=== PATIENT | female | born 2000 | race African-American/Black ===

== ENCOUNTER 2024-09-12 08:15 | Outpatient (RCR) | payer OTHER, SELFPAY ==
--- NOTE | 2024-06-23 17:09 | PT.OIE ---
Current Diagnoses Unspecified dyspareunia (06/23/24) Visit Care Team Role Provider Type LISA Torres-Kiara Family Provider Non-Staff Primary Care Provider Specialty: Nursing Address: [facility], [address] [place] [address], [id number] Email: Joanne Richard MD Attending Provider Non-Staff Referring Provider Specialty: Medical Address: [address] [place] [address], [id number] Email: Physical Therapy Initial Evaluation PT-OP-A Visit Information Start: 06/14/24 18:30 Freq: Status: Active Protocol: Document 06/23/24 07:34 LRN (Rec: 06/23/24 09:50 LRN [id number]) Out-Patient Physical Therapy Visit Information Visit Information Visit Type Initial Evaluation Visit Start Time 07:34 Visit Stop Time 08:21 Visit Number 1 Evaluation Information Evaluation Date 06/23/24 Precautions Precautions Hx of asthma (no attacks for several years). PT-OP-B Current Condition Start: 06/14/24 18:30 Freq: Status: Active Protocol: Document 06/23/24 07:34 LRN (Rec: 06/23/24 09:50 LRN [id number]) Current Condition History of Current Condition Onset Date 3 yrs ago Current Complaints Painful intercourse, urinary leakage. History of Current Condition Painful having intercourse, tried more lub and different positions and during PAP smear told MD and was told to try more lub. States pap smear was uncomfortable. Pain with initial insertion and during intercourse. Has burning sensation afterwards and if urinates, burning pain increases and has to wait a few hours to be more comfortable. States she also has trouble holding urine, that started during boot camp in 2018. She times it so that after drinking fluids she can use the toilet. Developmental History Developmental History . 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 Sometimes she is not able to use BR before having to go out on the field. Hx of premenstrual cramping, sometimes has to stop and bend over and breath to be able to continue with activities. Treatment Goals Patient/Caregiver Goals Pt goals: Alleviate some of the pain and figure out what dx is. Exercises to strengthen PF. Be able to hold bladder longer and not feel like urinating is urgent. Personal Factors Other Personal Factors That May Effect Pt is and is not Therapy/Recovery always able to use bathroom when needed. PT-OP-C Subjective Start: 06/14/24 18:30 Freq: Status: Active Protocol: Document 06/23/24 07:34 LRN (Rec: 06/23/24 09:50 LRN [id number]) Patient Questionnaires Pelvic Pain and Urgency/Frequency Patient Symptom Scale Pelvic Pain Score 23 (20 or above = 91% likelihood of +PST) PT-OP-I Pelvic Floor Start: 06/14/24 18:30 Freq: Status: Active Protocol: Document 06/23/24 07:34 LRN (Rec: 06/23/24 09:50 LRN [id number]) Pelvic Floor Assessment Urine Pelvic Floor Surgery No Urinary Symptoms Urge Sensation,Dribbling After Urination,Incomplete Emptying Other Urinary Symptoms Leakage daily. Pushes after urinating but nothing comes out, but 20' later must urinate again. Leakage Size Medium Leakage Cause Urge Other Leakage Causes Couple times w/sneezing Leaks Per Day 3 Nocturia 1 Pads Used In 24 Hours 0 Bowel Bowel Movement Frequency every 3-4 days. [place] Stool Chart Comments Type 3 & 4 Pelvic Clock Pelvic Clock 12-3 Guarding,Tenderness,Tightness Pelvic Clock 3-6 Guarding,Tenderness,Tightness Pelvic Clock 6-9 Guarding,Tenderness Pelvic Clock 9-12 Guarding,Tenderness Prolapse Uterine Prolapse Grade 1 Cystocele Grade 1 Perineal Descent Resting Absent Bearing Absent Contraction Ability Voluntary Contraction Weak Voluntary Relaxation Weak Manual Muscle Testing Left 1 Manual Muscle Testing Right 1 Manual Muscle Testing Anterior 1 Manual Muscle Testing Posterior 1 Muscle Endurance (Seconds) 1 Number of Quick Contractions In 10 4 Seconds PT-OP-J Posture/Palpation/Skin Start: 06/14/24 18:30 Freq: Status: Active Protocol: Document 06/23/24 07:34 LRN (Rec: 06/23/24 09:50 LRN [id number]) Posture Evaluation Position Standing Head/C-Spine Posture Forward Head L-Spine Posture Increased Lordosis Shoulder Posture (R) Elevated Pelvis Posture Anteriorly Tilted Hip Posture (R) Externally Rotated Comments Posture Comments Decreased curvature of upper T /S. PT-OP-K Range of Motion Start: 06/14/24 18:30 Freq: Status: Active Protocol: Document 06/23/24 07:34 LRN (Rec: 06/23/24 09:50 LRN [id number]) Lumbar Spine Range of Motion Lumbar Spine Active Degrees Testing Position Standing Flexion 80 Extension 20 Rotation Left 30 Rotation Right 20 Lateral Flexion Left 35 Lateral Flexion Right 20 Hip Goniometric Range of Motion Hip Right Passive Testing Position Supine Abduction 30 Internal Rotation 35 External Rotation 40 Comments Pain in groin with end-range hip rotation. Left Passive Testing Position Supine Abduction 35 Internal Rotation 35 External Rotation 40 Comments Discomfort in groin with end- range hip rotation. PT-OP-M Strength Start: 06/14/24 18:30 Freq: Status: Active Protocol: Document 06/23/24 07:34 LRN (Rec: 06/23/24 09:50 LRN [id number]) Trunk Strength Trunk Manual Muscle Testing Core Stabilization Cores strength is 3/5. Hip Strength Hip Manual Muscle Testing Right Comments Strength is 3/5 in all muscle groups. Left Comments Strength is 3/5 in all muscle groups. PT-OP-Q Treatments Start: 06/14/24 18:30 Freq: Status: Active Protocol: Document 06/23/24 07:34 LRN (Rec: 06/23/24 09:50 LRN [id number]) Self-Care/Home Management Treatment Education Other Education Discussed results of evaluation, goals, treatment, and plan of care (POC) with pt , attendance/cx/dns policy reviewed; pt agreeable to evaluation, goals, treatment, attendance/cx/dns policy and POC. Pt educated in use of wand for self PF stretching. Briefly discussed how to diaphragmatic deep breathe. Activities Self-Care/Home Management Activities Issued & reviewed HEP: Diaphragmatic deep breathing. Issued XS wand for PF stretching. PT-OP-T Assessment and Plan Start: 06/14/24 18:30 Freq: Status: Active Protocol: Document 06/23/24 07:34 LRN (Rec: 06/23/24 09:50 LRN [id number]) Physical Therapy Assessment Rehab Potential Rehabilitation Potential Good Evaluation Complexity Number of Personal Factors/Comorbidities 1-2 Impairments Impairments Activity Tolerance Goals Three Short Term Goal (STG) Pt will be educated in fluid management and urinary delay technique. STG Duration 08/19/24 Plastic Finisher Goal (LTG) Pt will be able to delay urination to make it to bathroom w/o leaking while at work 3 of 7 days. LTG Duration 10/14/24 Two Impairment Pain with intercourse Short Term Goal (STG) Pt will be able to tolerate PF stretching in all areas without pain in the upper 1/2 of her PF (PF clock 9-3). STG Duration 08/19/24 Snf Goal (LTG) Pt will be able to alleviate some of the pain allowing the pt to relax during intercourse , and to have an understanding of her condition and how to alleviate pain before intercourse. LTG Duration 10/14/24 One Impairment HEP Short Term Goal (STG) Pt able to perform proper deep breathing to relax her PF. STG Duration 08/19/24 Snf Goal (LTG) Pt independent with HEP to relax PF/hips/core. LTG Duration 10/14/24 Assessment Summary Assessment Pt is a 24 yo female who presents with dysparenuia and urge incontinence due to tight /tender PF (external an internal), small vaginal opening, lower abdominal pain, decreased trunk & hip mobility, and possibly poor fluid management. The pt has a longstanding history of painful periods with PUF score of 23, indicating 91% likelihood of +PST; therefore if the pt shows poor response to PT, then consideration for assessing for interstitial cystitis is recommended. The pt will benefit from skilled physical therapy for pt education, Manual therapy, biofeedback with vaginal sensor for PF relaxation awareness f/b contract/relax, Therapeutic Exercises, Therapeutic Activities and neuromuscular reeducation. Physical Therapy Plan Frequency and Duration Frequency of Treatment 2x/Week Duration of treatment (weeks) 16 Plan of Care Start Date 06/23/24 Plan of Care End Date 10/14/24 Therapeutic Interventions Therapeutic Interventions Home Exercise Program,Joint Mobilizations,Manual Therapy, Neuromuscular Re-education, Self-Care/Home Management,Soft Tissue Mobilization,Taping, Therapeutic Activities, Therapeutic Exercises Modalities Biofeedback Next Visit Focus/Plan Next Note Type Treatment Note Next Visit Plan ......... Next: Issue bladder diary. Review HEP: Deep breathing and PF stretching with wand. Educate/discuss stool types, foods, water intake, educate & discuss Bowel massage, sit to stand and moving in bed using breathwork. HEP: Stretches: Trunk flex/ext(lwr abs), R rot, L SB, hip IR/ER/AD. Check abdominal mobility and if needed: STM of abdomen (and urachus) & bladder mobility. Biofeedback when pt able to tolerate electrode. POC: Pt education, Manual therapy. Biofeedback with vaginal sensor for PF >< awareness and strengthening, Therapeutic Exercises, Therapeutic Activities, Neuromuscular Reeducation.
--- NOTE | 2024-07-04 17:16 | PT.OTN ---
Current Diagnoses Unspecified dyspareunia (07/04/24) Physical Therapy Treatment Note PT-OP-A Visit Information Start: 06/14/24 18:30 Freq: Status: Active Protocol: Document 07/04/24 08:23 LRN (Rec: 07/04/24 09:04 LRN [id number]) Out-Patient Physical Therapy Visit Information Visit Information Visit Type Treatment Note Visit Start Time 08:23 Visit Stop Time 09:01 Visit Number 2 Evaluation Information Evaluation Date 06/23/24 Precautions Precautions Hx of asthma (no attacks for several years). PT-OP-B Current Condition Start: 06/14/24 18:30 Freq: Status: Active Protocol: Document 06/23/24 07:34 LRN (Rec: 06/23/24 09:50 LRN [id number]) Current Condition History of Current Condition Onset Date 3 yrs ago Current Complaints Painful intercourse, urinary leakage. History of Current Condition Painful having intercourse, tried more lub and different positions and during PAP smear told MD and was told to try more lub. States pap smear was uncomfortable. Pain with initial insertion and during intercourse. Has burning sensation afterwards and if urinates, burning pain increases and has to wait a few hours to be more comfortable. States she also has trouble holding urine, that started during boot camp in 2018. She times it so that after drinking fluids she can use the toilet. Developmental History Developmental History . 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 Sometimes she is not able to use BR before having to go out on the field. Hx of premenstrual cramping, sometimes has to stop and bend over and breath to be able to continue with activities. Treatment Goals Patient/Caregiver Goals Pt goals: Alleviate some of the pain and figure out what dx is. Exercises to strengthen PF. Be able to hold bladder longer and not feel like urinating is urgent. Personal Factors Other Personal Factors That May Effect Pt is and is not Therapy/Recovery always able to use bathroom when needed. PT-OP-C Subjective Start: 06/14/24 18:30 Freq: Status: Active Protocol: Document 07/04/24 08:23 LRN (Rec: 07/04/24 09:04 LRN [id number]) OP-PT Subjective Patient Comments Patient Comments Stretching with wand, so improved, is tight, but not too tight. Less hours of pain . In the last week and was able to sleep through night x1 . PT-OP-I Pelvic Floor Start: 06/14/24 18:30 Freq: Status: Active Protocol: Document 06/23/24 07:34 LRN (Rec: 06/23/24 09:50 LRN [id number]) Pelvic Floor Assessment Urine Pelvic Floor Surgery No Urinary Symptoms Urge Sensation,Dribbling After Urination,Incomplete Emptying Other Urinary Symptoms Leakage daily. Pushes after urinating but nothing comes out, but 20' later must urinate again. Leakage Size Medium Leakage Cause Urge Other Leakage Causes Couple times w/sneezing Leaks Per Day 3 Nocturia 1 Pads Used In 24 Hours 0 Bowel Bowel Movement Frequency every 3-4 days. [place] Stool Chart Comments Type 3 & 4 Pelvic Clock Pelvic Clock 12-3 Guarding,Tenderness,Tightness Pelvic Clock 3-6 Guarding,Tenderness,Tightness Pelvic Clock 6-9 Guarding,Tenderness Pelvic Clock 9-12 Guarding,Tenderness Prolapse Uterine Prolapse Grade 1 Cystocele Grade 1 Perineal Descent Resting Absent Bearing Absent Contraction Ability Voluntary Contraction Weak Voluntary Relaxation Weak Manual Muscle Testing Left 1 Manual Muscle Testing Right 1 Manual Muscle Testing Anterior 1 Manual Muscle Testing Posterior 1 Muscle Endurance (Seconds) 1 Number of Quick Contractions In 10 4 Seconds PT-OP-J Posture/Palpation/Skin Start: 06/14/24 18:30 Freq: Status: Active Protocol: Document 06/23/24 07:34 LRN (Rec: 06/23/24 09:50 LRN [id number]) Posture Evaluation Position Standing Head/C-Spine Posture Forward Head L-Spine Posture Increased Lordosis Shoulder Posture (R) Elevated Pelvis Posture Anteriorly Tilted Hip Posture (R) Externally Rotated Comments Posture Comments Decreased curvature of upper T /S. PT-OP-K Range of Motion Start: 06/14/24 18:30 Freq: Status: Active Protocol: Document 06/23/24 07:34 LRN (Rec: 06/23/24 09:50 LRN [id number]) Lumbar Spine Range of Motion Lumbar Spine Active Degrees Testing Position Standing Flexion 80 Extension 20 Rotation Left 30 Rotation Right 20 Lateral Flexion Left 35 Lateral Flexion Right 20 Hip Goniometric Range of Motion Hip Right Passive Testing Position Supine Abduction 30 Internal Rotation 35 External Rotation 40 Comments Pain in groin with end-range hip rotation. Left Passive Testing Position Supine Abduction 35 Internal Rotation 35 External Rotation 40 Comments Discomfort in groin with end- range hip rotation. PT-OP-M Strength Start: 06/14/24 18:30 Freq: Status: Active Protocol: Document 06/23/24 07:34 LRN (Rec: 06/23/24 09:50 LRN [id number]) Trunk Strength Trunk Manual Muscle Testing Core Stabilization Cores strength is 3/5. Hip Strength Hip Manual Muscle Testing Right Comments Strength is 3/5 in all muscle groups. Left Comments Strength is 3/5 in all muscle groups. PT-OP-Q Treatments Start: 06/14/24 18:30 Freq: Status: Active Protocol: Document 07/04/24 08:23 LRN (Rec: 07/04/24 09:04 LRN [id number]) Therapeutic Exercises Supine Exercises Iliopsoas stretch Supine Exercise Name Time for just R side Side bilateral Lat Hip stretch Supine Exercise Name Time for just R side Side bilateral Piriformis stretch Side bilateral Reps/Minutes 60 SH x 1 Comments Xtra time to determine max sourav stretch Fig 4 stretch Side bilateral Equipment Used Pillow under upper thigh for support during stretch Reps/Minutes 60 SH, f/b 10 active stretches Comments Cued to do active stretch, Xtra time to determine max sourav stretch hip IR/ER/AD stretch Side bilateral Sitting Exercises Trunk R rot stretch Reps/Minutes 10 SH x 6 Comments Cued to keep sit bones stable Standing Exercises Trunk L SB stretch Equipment Used Wall Reps/Minutes 10 SH x 6 Comments Cued to keep back straight Manual Therapy Treatment Consent Patient gave verbal consent for manual Yes treatment Soft Tissue Mobilization PF Body Location Superficial PF Mobilization Type Trigger Point Release Intensity/Depth Superficial Body Position Hooklying Self-Care/Home Management Treatment Education Other Education 5' Discussed and educated pt in specifics for completion of in use of Bladder Diary. Activities Self-Care/Home Management Activities Issued & reviewed HEP: Hip ER (fig 4 stretch), Piriformis, Hip flexor (Eric Test position), Standing trunk L SB and sitting Trunk R rot stretch. PT-OP-T Assessment and Plan Start: 06/14/24 18:30 Freq: Status: Active Protocol: Document 07/04/24 08:23 LRN (Rec: 07/04/24 09:04 LRN [id number]) Physical Therapy Assessment Goals Three Short Term Goal (STG) Pt will be educated in fluid management and urinary delay technique. STG Duration 08/19/24 Liner Reroll Tender Goal (LTG) Pt will be able to delay urination to make it to bathroom w/o leaking while at work 3 of 7 days. LTG Duration 10/14/24 Two Impairment Pain with intercourse Short Term Goal (STG) Pt will be able to tolerate PF stretching in all areas without pain in the upper 1/2 of her PF (PF clock 9-3). STG Duration 08/19/24 Liner Reroll Tender Goal (LTG) Pt will be able to alleviate some of the pain allowing the pt to relax during intercourse , and to have an understanding of her condition and how to alleviate pain before intercourse. LTG Duration 10/14/24 One Impairment HEP Short Term Goal (STG) Pt able to perform proper deep breathing to relax her PF. STG Duration 08/19/24 Liner Reroll Tender Goal (LTG) Pt independent with HEP to relax PF/hips/core. 07/04/24: HEP: Hip ER (fig 4 stretch), Piriformis, Hip flexor (Eric Test position), Standing trunk L SB and sitting Trunk R rot stretch. LTG Duration 10/14/24 progressing Assessment Summary Assessment Pt is a 24 yo female w/ dysparenuia and urge incontinence due to tight/ tender PF (external an internal), small vaginal opening, lower abdominal pain, decreased trunk & hip mobility, and possibly poor fluid management, with longstanding hx of painful periods/PUF score 23 (symptoms of interstitial cystitis). Today, pt tolerated hip stretches well w/tightness evident in hips. + response to PF self stretching with wand with less onset of pain. Good release of trigger points with manual PF stretching; therefore more manual mob needed. Physical Therapy Plan Next Visit Focus/Plan Next Note Type Treatment Note Next Visit Plan Next: Review bladder diary. HEP: Deep breathing (STG1) and trunk flex/ext(lwr abs) and hip AD stretch, and manual PF stretching, progressing to deeper muscles. Educate/discuss stool types, foods, water intake, educate & discuss Bowel massage, sit to stand and moving in bed using breathwork. Check abdominal mobility and if needed: STM of abdomen (and urachus) & bladder mobility. Biofeedback when pt able to tolerate electrode. POC: Pt education, Manual therapy. Biofeedback with vaginal sensor for PF >< awareness and strengthening, Therapeutic Exercises, Therapeutic Activities, Neuromuscular Reeducation.
--- NOTE | 2024-07-19 09:27 | PT.OTN ---
Current Diagnoses Unspecified dyspareunia (07/19/24) Physical Therapy Treatment Note PT-OP-A Visit Information Start: 06/14/24 18:30 Freq: Status: Active Protocol: Document 07/19/24 07:29 LRN (Rec: 07/19/24 09:06 LRN [id number]) Out-Patient Physical Therapy Visit Information Visit Information Visit Type Treatment Note Visit Start Time 08:19 Visit Stop Time 08:57 Visit Number 3 Evaluation Information Evaluation Date 06/23/24 Precautions Precautions Hx of asthma (no attacks for several years). PT-OP-B Current Condition Start: 06/14/24 18:30 Freq: Status: Active Protocol: Document 06/23/24 07:34 LRN (Rec: 06/23/24 09:50 LRN [id number]) Current Condition History of Current Condition Onset Date 3 yrs ago Current Complaints Painful intercourse, urinary leakage. History of Current Condition Painful having intercourse, tried more lub and different positions and during PAP smear told MD and was told to try more lub. States pap smear was uncomfortable. Pain with initial insertion and during intercourse. Has burning sensation afterwards and if urinates, burning pain increases and has to wait a few hours to be more comfortable. States she also has trouble holding urine, that started during boot camp in 2018. She times it so that after drinking fluids she can use the toilet. Developmental History Developmental History . 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 Sometimes she is not able to use BR before having to go out on the field. Hx of premenstrual cramping, sometimes has to stop and bend over and breath to be able to continue with activities. Treatment Goals Patient/Caregiver Goals Pt goals: Alleviate some of the pain and figure out what dx is. Exercises to strengthen PF. Be able to hold bladder longer and not feel like urinating is urgent. Personal Factors Other Personal Factors That May Effect Pt is and is not Therapy/Recovery always able to use bathroom when needed. PT-OP-C Subjective Start: 06/14/24 18:30 Freq: Status: Active Protocol: Document 07/19/24 07:29 LRN (Rec: 07/19/24 09:06 LRN [id number]) OP-PT Subjective Patient Comments Patient Comments Spouse just had back surgery and getting out of car, so left the bladder diary in the home. Bikes to work. Notes she stays hydrated. States she hasn't had time to call to schedule an appt to be checked for possible vaginal infection (excessive discharge ). PT-OP-I Pelvic Floor Start: 06/14/24 18:30 Freq: Status: Active Protocol: Document 06/23/24 07:34 LRN (Rec: 06/23/24 09:50 LRN [id number]) Pelvic Floor Assessment Urine Pelvic Floor Surgery No Urinary Symptoms Urge Sensation,Dribbling After Urination,Incomplete Emptying Other Urinary Symptoms Leakage daily. Pushes after urinating but nothing comes out, but 20' later must urinate again. Leakage Size Medium Leakage Cause Urge Other Leakage Causes Couple times w/sneezing Leaks Per Day 3 Nocturia 1 Pads Used In 24 Hours 0 Bowel Bowel Movement Frequency every 3-4 days. [place] Stool Chart Comments Type 3 & 4 Pelvic Clock Pelvic Clock 12-3 Guarding,Tenderness,Tightness Pelvic Clock 3-6 Guarding,Tenderness,Tightness Pelvic Clock 6-9 Guarding,Tenderness Pelvic Clock 9-12 Guarding,Tenderness Prolapse Uterine Prolapse Grade 1 Cystocele Grade 1 Perineal Descent Resting Absent Bearing Absent Contraction Ability Voluntary Contraction Weak Voluntary Relaxation Weak Manual Muscle Testing Left 1 Manual Muscle Testing Right 1 Manual Muscle Testing Anterior 1 Manual Muscle Testing Posterior 1 Muscle Endurance (Seconds) 1 Number of Quick Contractions In 10 4 Seconds PT-OP-J Posture/Palpation/Skin Start: 06/14/24 18:30 Freq: Status: Active Protocol: Document 06/23/24 07:34 LRN (Rec: 06/23/24 09:50 LRN [id number]) Posture Evaluation Position Standing Head/C-Spine Posture Forward Head L-Spine Posture Increased Lordosis Shoulder Posture (R) Elevated Pelvis Posture Anteriorly Tilted Hip Posture (R) Externally Rotated Comments Posture Comments Decreased curvature of upper T /S. PT-OP-K Range of Motion Start: 06/14/24 18:30 Freq: Status: Active Protocol: Document 06/23/24 07:34 LRN (Rec: 06/23/24 09:50 LRN [id number]) Lumbar Spine Range of Motion Lumbar Spine Active Degrees Testing Position Standing Flexion 80 Extension 20 Rotation Left 30 Rotation Right 20 Lateral Flexion Left 35 Lateral Flexion Right 20 Hip Goniometric Range of Motion Hip Right Passive Testing Position Supine Abduction 30 Internal Rotation 35 External Rotation 40 Comments Pain in groin with end-range hip rotation. Left Passive Testing Position Supine Abduction 35 Internal Rotation 35 External Rotation 40 Comments Discomfort in groin with end- range hip rotation. PT-OP-M Strength Start: 06/14/24 18:30 Freq: Status: Active Protocol: Document 06/23/24 07:34 LRN (Rec: 06/23/24 09:50 LRN [id number]) Trunk Strength Trunk Manual Muscle Testing Core Stabilization Cores strength is 3/5. Hip Strength Hip Manual Muscle Testing Right Comments Strength is 3/5 in all muscle groups. Left Comments Strength is 3/5 in all muscle groups. PT-OP-Q Treatments Start: 06/14/24 18:30 Freq: Status: Active Protocol: Document 07/19/24 07:29 LRN (Rec: 07/19/24 09:06 LRN [id number]) Therapeutic Exercises Supine Exercises Hamstring/LE neural glide Side bilateral Reps/Minutes 10 SH f/b 10 ankle pumps - 3sets Comments Extra time for determining max tolerated position Hip AD stretch Side bilateral Reps/Minutes 3' Iliopsoas stretch Supine Exercise Name Time for just R side Side bilateral Lat Hip stretch Supine Exercise Name Time for just R side Side bilateral Piriformis stretch Side bilateral Reps/Minutes 60 SH x 1 Comments Xtra time to determine max sourav stretch Fig 4 stretch Side bilateral Equipment Used Pillow under upper thigh for support during stretch Reps/Minutes 60 SH, f/b 10 active stretches Comments Cued to do active stretch, Xtra time to determine max sourav stretch Sitting Exercises V-sit Hip AD stretch Sitting Exercise Name Quick Review Reps/Minutes 1' SL Hip AD stretch Side bilateral Reps/Minutes 60 SH x 1 Comments Extra time for determining max tolerated position Hamstring/LE neural stretch Sitting Exercise Name Quick review Reps/Minutes 1' Deep Breathing Reps/Minutes 5' Manual Therapy Treatment Soft Tissue Mobilization Hip stretches Body Location Hip AD's Mobilization Type Myofascial Release,Strumming, Other Intensity/Depth Moderate Body Position Supine Self-Care/Home Management Treatment Activities Self-Care/Home Management Activities Issued & reviewed HEP: Hip AD stretch (SL, V-sit); Hamstring/LE neural stretch ( sup, sit). PT-OP-T Assessment and Plan Start: 06/14/24 18:30 Freq: Status: Active Protocol: Document 07/19/24 07:29 LRN (Rec: 07/19/24 09:06 LRN [id number]) Physical Therapy Assessment Goals Three Impairment Urge urinary incontinence. Short Term Goal (STG) Pt will be educated in fluid management and urinary delay technique. STG Duration 08/19/24 [employer] Goal (LTG) Pt will be able to delay urination to make it to bathroom w/o leaking while at work 3 of 7 days. LTG Duration 10/14/24 Two Impairment Pain with intercourse Short Term Goal (STG) Pt will be able to tolerate PF stretching in all areas without pain in the upper 1/2 of her PF (PF clock 9-3). STG Duration 08/19/24 Care Home Goal (LTG) Pt will be able to alleviate some of the pain allowing the pt to relax during intercourse , and to have an understanding of her condition and how to alleviate pain before intercourse. LTG Duration 10/14/24 One Impairment HEP Short Term Goal (STG) Pt able to perform proper deep breathing to relax her PF. 06/23/24: Pt issued Diaphragmatic breathing. STG Duration 08/19/24 progressed 06/23/24 Care Home Goal (LTG) Pt independent with HEP to relax PF/hips/core. 07/04/24: HEP: Hip ER (fig 4 stretch), Piriformis, Hip flexor (Eric Test position), Standing trunk L SB and sitting Trunk R rot stretch. 07/19/24: HEP: Hip AD stretch (SL, V-sit) Hamstring/ LE neural stretch (sup, sit). LTG Duration 10/14/24 progressing Assessment Summary Assessment 24 yo female w/dysparenuia and urge incontinence due to tight/tender PF (external an internal), small vaginal opening, lower abdominal pain, decreased trunk & hip mobility, and possibly poor fluid management, with longstanding hx of painful periods/PUF score 23 (symptoms of interstitial cystitis). Today she did not have her bladder diary and she was not able to have internal STM due to still having symptoms of clumpy discharge and has not been able to scheduled for medical appt. She is doing her HEP, but may need to do more often, but because of her spouse's recent surgery she is having time issue difficulties. Pt is very receptive to doing her new ex' s. Physical Therapy Plan Frequency and Duration Frequency of Treatment 2x/Week Duration of treatment (weeks) 16 Plan of Care Start Date 06/23/24 Plan of Care End Date 10/14/24 Next Visit Focus/Plan Next Note Type Treatment Note Next Visit Plan Next: Check on status of possible vaginal infection, with follow up visit for clearance if positive. Review bladder diary. HEP: Deep breathing (STG1). Review : trunk flex/ext(lwr abs), hip AD & hamstring stretch. When cleared of possible infection: Manual PF stretching, progressing to deeper muscles. Educate/discuss stool types, foods, water intake, educate & discuss Bowel massage, sit to stand and moving in bed using breathwork. Check abdominal mobility and if needed: STM of abdomen (and urachus) & bladder mobility. Biofeedback when pt able to tolerate electrode. POC: Pt education, Manual therapy. Biofeedback with vaginal sensor for PF >< awareness and strengthening, Therapeutic Exercises, Therapeutic Activities, Neuromuscular Reeducation.
--- NOTE | 2024-07-25 16:48 | PT.OTN ---
Current Diagnoses Unspecified dyspareunia (07/25/24) Physical Therapy Treatment Note PT-OP-A Visit Information Start: 06/14/24 18:30 Freq: Status: Active Protocol: Document 07/25/24 09:47 LRN (Rec: 07/25/24 10:31 LRN [id number]) Out-Patient Physical Therapy Visit Information Visit Information Visit Type Treatment Note Visit Start Time 09:47 Visit Stop Time 19:25 Visit Number 4 Evaluation Information Evaluation Date 06/23/24 Precautions Precautions Hx of asthma (no attacks for several years). PT-OP-B Current Condition Start: 06/14/24 18:30 Freq: Status: Active Protocol: Document 06/23/24 07:34 LRN (Rec: 06/23/24 09:50 LRN [id number]) Current Condition History of Current Condition Onset Date 3 yrs ago Current Complaints Painful intercourse, urinary leakage. History of Current Condition Painful having intercourse, tried more lub and different positions and during PAP smear told MD and was told to try more lub. States pap smear was uncomfortable. Pain with initial insertion and during intercourse. Has burning sensation afterwards and if urinates, burning pain increases and has to wait a few hours to be more comfortable. States she also has trouble holding urine, that started during boot camp in 2018. She times it so that after drinking fluids she can use the toilet. Developmental History Developmental History . 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 Sometimes she is not able to use BR before having to go out on the field. Hx of premenstrual cramping, sometimes has to stop and bend over and breath to be able to continue with activities. Treatment Goals Patient/Caregiver Goals Pt goals: Alleviate some of the pain and figure out what dx is. Exercises to strengthen PF. Be able to hold bladder longer and not feel like urinating is urgent. Personal Factors Other Personal Factors That May Effect Pt is and is not Therapy/Recovery always able to use bathroom when needed. PT-OP-C Subjective Start: 06/14/24 18:30 Freq: Status: Active Protocol: Document 07/25/24 09:47 LRN (Rec: 07/25/24 10:31 LRN [id number]) OP-PT Subjective Patient Comments Patient Comments States she has an extra growth of yeast and is on antibiotics. Can't get re- evaluated tomorrow. PT-OP-I Pelvic Floor Start: 06/14/24 18:30 Freq: Status: Active Protocol: Document 06/23/24 07:34 LRN (Rec: 06/23/24 09:50 LRN [id number]) Pelvic Floor Assessment Urine Pelvic Floor Surgery No Urinary Symptoms Urge Sensation,Dribbling After Urination,Incomplete Emptying Other Urinary Symptoms Leakage daily. Pushes after urinating but nothing comes out, but 20' later must urinate again. Leakage Size Medium Leakage Cause Urge Other Leakage Causes Couple times w/sneezing Leaks Per Day 3 Nocturia 1 Pads Used In 24 Hours 0 Bowel Bowel Movement Frequency every 3-4 days. [place] Stool Chart Comments Type 3 & 4 Pelvic Clock Pelvic Clock 12-3 Guarding,Tenderness,Tightness Pelvic Clock 3-6 Guarding,Tenderness,Tightness Pelvic Clock 6-9 Guarding,Tenderness Pelvic Clock 9-12 Guarding,Tenderness Prolapse Uterine Prolapse Grade 1 Cystocele Grade 1 Perineal Descent Resting Absent Bearing Absent Contraction Ability Voluntary Contraction Weak Voluntary Relaxation Weak Manual Muscle Testing Left 1 Manual Muscle Testing Right 1 Manual Muscle Testing Anterior 1 Manual Muscle Testing Posterior 1 Muscle Endurance (Seconds) 1 Number of Quick Contractions In 10 4 Seconds PT-OP-J Posture/Palpation/Skin Start: 06/14/24 18:30 Freq: Status: Active Protocol: Document 06/23/24 07:34 LRN (Rec: 06/23/24 09:50 LRN [id number]) Posture Evaluation Position Standing Head/C-Spine Posture Forward Head L-Spine Posture Increased Lordosis Shoulder Posture (R) Elevated Pelvis Posture Anteriorly Tilted Hip Posture (R) Externally Rotated Comments Posture Comments Decreased curvature of upper T /S. PT-OP-K Range of Motion Start: 06/14/24 18:30 Freq: Status: Active Protocol: Document 06/23/24 07:34 LRN (Rec: 06/23/24 09:50 LRN [id number]) Lumbar Spine Range of Motion Lumbar Spine Active Degrees Testing Position Standing Flexion 80 Extension 20 Rotation Left 30 Rotation Right 20 Lateral Flexion Left 35 Lateral Flexion Right 20 Hip Goniometric Range of Motion Hip Right Passive Testing Position Supine Abduction 30 Internal Rotation 35 External Rotation 40 Comments Pain in groin with end-range hip rotation. Left Passive Testing Position Supine Abduction 35 Internal Rotation 35 External Rotation 40 Comments Discomfort in groin with end- range hip rotation. PT-OP-M Strength Start: 06/14/24 18:30 Freq: Status: Active Protocol: Document 06/23/24 07:34 LRN (Rec: 06/23/24 09:50 LRN [id number]) Trunk Strength Trunk Manual Muscle Testing Core Stabilization Cores strength is 3/5. Hip Strength Hip Manual Muscle Testing Right Comments Strength is 3/5 in all muscle groups. Left Comments Strength is 3/5 in all muscle groups. PT-OP-Q Treatments Start: 06/14/24 18:30 Freq: Status: Active Protocol: Document 07/25/24 09:47 LRN (Rec: 07/25/24 10:31 LRN [id number]) Therapeutic Exercises Supine Exercises Hamstring/LE neural glide Side bilateral Reps/Minutes 10 SH f/b 10 ankle pumps - 3sets Comments Extra time for review Hip AD stretch Supine Exercise Name Passive & AA stretch to R leg Side bilateral Reps/Minutes 3' Iliopsoas stretch Side right Sitting Exercises Trunk R rot stretch Reps/Minutes 10 SH x 6 Comments Cued to keep sit bones stable Standing Exercises Trunk L SB stretch Equipment Used Back agst wall, and away from wall x 2 Reps/Minutes 10 SH x 6 Comments Cued to keep back straight Self-Care/Home Management Treatment Education Other Education Discussed & educated pt in General Vulvar and Hygiene Care for Women. Activities Self-Care/Home Management Activities Issued and reviewed Handout: General Vulvar and Hygiene Care for Women. PT-OP-T Assessment and Plan Start: 06/14/24 18:30 Freq: Status: Active Protocol: Document 07/25/24 09:47 LRN (Rec: 07/25/24 10:31 LRN [id number]) Physical Therapy Assessment Goals Three Impairment Urge urinary incontinence. Short Term Goal (STG) Pt will be educated in fluid management and urinary delay technique. STG Duration 08/19/24 [facility] Goal (LTG) Pt will be able to delay urination to make it to bathroom w/o leaking while at work 3 of 7 days. LTG Duration 10/14/24 Two Impairment Pain with intercourse Short Term Goal (STG) Pt will be able to tolerate PF stretching in all areas without pain in the upper 1/2 of her PF (PF clock 9-3). STG Duration 08/19/24 [facility] Goal (LTG) Pt will be able to alleviate some of the pain allowing the pt to relax during intercourse , and to have an understanding of her condition and how to alleviate pain before intercourse. LTG Duration 10/14/24 One Impairment HEP Short Term Goal (STG) Pt able to perform proper deep breathing to relax her PF. 06/23/24: Pt issued Diaphragmatic breathing. 07/25/24: Pt able to perform properly after first self phys cuing. STG Duration 08/19/24 progressed 07/25/24 [facility] Goal (LTG) Pt independent with HEP to relax PF/hips/core. 07/04/24: HEP: Hip ER (fig 4 stretch), Piriformis, Hip flexor (Eric Test position), Standing trunk L SB and sitting Trunk R rot stretch. 07/19/24: HEP: Hip AD stretch (SL, V-sit) Hamstring/ LE neural stretch (sup, sit). 07/25/24: Handout: General Vulvar and Hygiene Care for Women. LTG Duration 10/14/24 progressing Assessment Summary Assessment 24 yo female w/dysparenuia and urge incontinence due to tight/tender PF (external an internal), small vaginal opening, lower abdominal pain, decreased trunk & hip mobility, and possibly poor fluid management, with longstanding hx of painful periods/PUF score 23 (symptoms of interstitial cystitis). Today, pt is reporting she was +yeast infection and will get checked for clearance tomorrow. Deep breathing is with minimal self cuing (hands on chest/abdom for 2 breaths training) and after 20 reps practice she was able to deep breath w/o hands cuing. Re- issued bladder diary as pt didn't have hers. + attitude towards hygiene and vulvar care reviewed. Pt shows improving awareness of her body positioning as she noted with decreased SB in indepedent standing vs against wall. Physical Therapy Plan Frequency and Duration Frequency of Treatment 2x/Week Duration of treatment (weeks) 16 Plan of Care Start Date 06/23/24 Plan of Care End Date 10/14/24 Next Visit Focus/Plan Next Note Type Treatment Note Next Visit Plan Next: Check on status of vaginal infection after follow up visit. Review bladder diary. HEP: Recheck Deep breathing (STG1). Check: trunk flex/ext(lwr abs). When cleared of possible infection: Manual PF stretching, progressing to deeper muscles. ? neuro re-ed with Vemg electrode. Educate/discuss stool types, foods, water intake, educate & discuss Bowel massage, sit to stand and moving in bed using breathwork. Check abdominal mobility and if needed: STM of abdomen (and urachus) & bladder mobility. POC: Pt education, Manual therapy. Biofeedback with vaginal sensor for PF >< awareness and strengthening, Therapeutic Exercises, Therapeutic Activities, Neuromuscular Reeducation.
--- NOTE | 2024-08-01 10:35 | PT.OTN ---
Current Diagnoses Unspecified dyspareunia (08/01/24) Physical Therapy Treatment Note PT-OP-A Visit Information Start: 06/14/24 18:30 Freq: Status: Active Protocol: Document 08/01/24 08:56 LRN (Rec: 08/01/24 10:34 LRN [id number]) Out-Patient Physical Therapy Visit Information Visit Information Visit Type Treatment Note Visit Start Time 09:47 Visit Stop Time 10:26 Visit Number 5 Evaluation Information Evaluation Date 06/23/24 Precautions Precautions Hx of asthma (no attacks for several years). PT-OP-B Current Condition Start: 06/14/24 18:30 Freq: Status: Active Protocol: Document 06/23/24 07:34 LRN (Rec: 06/23/24 09:50 LRN [id number]) Current Condition History of Current Condition Onset Date 3 yrs ago Current Complaints Painful intercourse, urinary leakage. History of Current Condition Painful having intercourse, tried more lub and different positions and during PAP smear told MD and was told to try more lub. States pap smear was uncomfortable. Pain with initial insertion and during intercourse. Has burning sensation afterwards and if urinates, burning pain increases and has to wait a few hours to be more comfortable. States she also has trouble holding urine, that started during boot camp in 2018. She times it so that after drinking fluids she can use the toilet. Developmental History Developmental History . 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 Sometimes she is not able to use BR before having to go out on the field. Hx of premenstrual cramping, sometimes has to stop and bend over and breath to be able to continue with activities. Treatment Goals Patient/Caregiver Goals Pt goals: Alleviate some of the pain and figure out what dx is. Exercises to strengthen PF. Be able to hold bladder longer and not feel like urinating is urgent. Personal Factors Other Personal Factors That May Effect Pt is and is not Therapy/Recovery always able to use bathroom when needed. PT-OP-C Subjective Start: 06/14/24 18:30 Freq: Status: Active Protocol: Document 08/01/24 08:56 LRN (Rec: 08/01/24 10:34 LRN [id number]) OP-PT Subjective Patient Comments Patient Comments States the re-swab came back and found abnormal amt of yeast, is finished the anti- biotic but won't be able to be tested to be cleared until . A couple times during the day she leaks with a stong urge, and upon first waking trying to get to toilet . PT-OP-I Pelvic Floor Start: 06/14/24 18:30 Freq: Status: Active Protocol: Document 06/23/24 07:34 LRN (Rec: 06/23/24 09:50 LRN [id number]) Pelvic Floor Assessment Urine Pelvic Floor Surgery No Urinary Symptoms Urge Sensation,Dribbling After Urination,Incomplete Emptying Other Urinary Symptoms Leakage daily. Pushes after urinating but nothing comes out, but 20' later must urinate again. Leakage Size Medium Leakage Cause Urge Other Leakage Causes Couple times w/sneezing Leaks Per Day 3 Nocturia 1 Pads Used In 24 Hours 0 Bowel Bowel Movement Frequency every 3-4 days. [place] Stool Chart Comments Type 3 & 4 Pelvic Clock Pelvic Clock 12-3 Guarding,Tenderness,Tightness Pelvic Clock 3-6 Guarding,Tenderness,Tightness Pelvic Clock 6-9 Guarding,Tenderness Pelvic Clock 9-12 Guarding,Tenderness Prolapse Uterine Prolapse Grade 1 Cystocele Grade 1 Perineal Descent Resting Absent Bearing Absent Contraction Ability Voluntary Contraction Weak Voluntary Relaxation Weak Manual Muscle Testing Left 1 Manual Muscle Testing Right 1 Manual Muscle Testing Anterior 1 Manual Muscle Testing Posterior 1 Muscle Endurance (Seconds) 1 Number of Quick Contractions In 10 4 Seconds PT-OP-J Posture/Palpation/Skin Start: 06/14/24 18:30 Freq: Status: Active Protocol: Document 06/23/24 07:34 LRN (Rec: 06/23/24 09:50 LRN [id number]) Posture Evaluation Position Standing Head/C-Spine Posture Forward Head L-Spine Posture Increased Lordosis Shoulder Posture (R) Elevated Pelvis Posture Anteriorly Tilted Hip Posture (R) Externally Rotated Comments Posture Comments Decreased curvature of upper T /S. PT-OP-K Range of Motion Start: 06/14/24 18:30 Freq: Status: Active Protocol: Document 06/23/24 07:34 LRN (Rec: 06/23/24 09:50 LRN [id number]) Lumbar Spine Range of Motion Lumbar Spine Active Degrees Testing Position Standing Flexion 80 Extension 20 Rotation Left 30 Rotation Right 20 Lateral Flexion Left 35 Lateral Flexion Right 20 Hip Goniometric Range of Motion Hip Right Passive Testing Position Supine Abduction 30 Internal Rotation 35 External Rotation 40 Comments Pain in groin with end-range hip rotation. Left Passive Testing Position Supine Abduction 35 Internal Rotation 35 External Rotation 40 Comments Discomfort in groin with end- range hip rotation. PT-OP-M Strength Start: 06/14/24 18:30 Freq: Status: Active Protocol: Document 06/23/24 07:34 LRN (Rec: 06/23/24 09:50 LRN [id number]) Trunk Strength Trunk Manual Muscle Testing Core Stabilization Cores strength is 3/5. Hip Strength Hip Manual Muscle Testing Right Comments Strength is 3/5 in all muscle groups. Left Comments Strength is 3/5 in all muscle groups. PT-OP-Q Treatments Start: 06/14/24 18:30 Freq: Status: Active Protocol: Document 08/01/24 08:56 LRN (Rec: 08/01/24 10:34 LRN [id number]) Therapeutic Exercises Supine Exercises Deep Breathing Reps/Minutes 10' Comments Extra time needed for max inbreath training, keeping chest still Sitting Exercises Bladder retraining Sitting Exercise Name Urge deference before voiding for bladder retraining. Reps/Minutes 5' Comments Continuous v cuing for method and steps in urge deference. Trunk R rot stretch Reps/Minutes 10 SH x 6 Comments Cued to keep sit bones stable Manual Therapy Treatment Soft Tissue Mobilization Hip stretches Body Location Alvaro Hip AD's Mobilization Type Myofascial Release,Trigger Point Release Intensity/Depth Moderate Body Position Supine Comments Many Active trigger points in hip AD's. Stretch with trP release while pt assisted with active stretch. Self-Care/Home Management Treatment Education Other Education Bladder diary review based on pt's recall of her diary she kept but left at work. Discussed norms for times between voids, urination times , urination at [facility]. Activities Self-Care/Home Management Activities Issued 1 each of daily and week Bladder diary. PT-OP-T Assessment and Plan Start: 06/14/24 18:30 Freq: Status: Active Protocol: Document 08/01/24 08:56 LRN (Rec: 08/01/24 10:34 LRN [id number]) Physical Therapy Assessment Goals Three Impairment Urge urinary incontinence. Short Term Goal (STG) Pt will be educated in fluid management and urinary delay technique. 08/01/24: MET GOAL. STG Duration 08/19/24 (08/01/24: MET GOAL) Nature Photographer Goal (LTG) Pt will be able to delay urination to make it to bathroom w/o leaking while at work 3 of 7 days. LTG Duration 10/14/24 Two Impairment Pain with intercourse Short Term Goal (STG) Pt will be able to tolerate PF stretching in all areas without pain in the upper 1/2 of her PF (PF clock 9-3). STG Duration 08/19/24 Mcc Goal (LTG) Pt will be able to alleviate some of the pain allowing the pt to relax during intercourse , and to have an understanding of her condition and how to alleviate pain before intercourse. LTG Duration 10/14/24 One Impairment HEP Short Term Goal (STG) Pt able to perform proper deep breathing to relax her PF. 06/23/24: Pt issued Diaphragmatic breathing. 07/25/24: Pt able to perform properly after first self phys cuing. 08/01/24: Pt able to perform deep breath properly with ms relaxation felt. STG Duration 08/19/24 (08/01/24: MET GOAL) Nature Photographer Goal (LTG) Pt independent with HEP to relax PF/hips/core. 07/04/24: HEP: Hip ER (fig 4 stretch), Piriformis, Hip flexor (Eric Test position), Standing trunk L SB and sitting Trunk R rot stretch. 07/19/24: HEP: Hip AD stretch (SL, V-sit) Hamstring/ LE neural stretch (sup, sit). 07/25/24: Handout: General Vulvar and Hygiene Care for Women. LTG Duration 10/14/24 progressing Assessment Summary Assessment 24 yo female w/dysparenuia and urge incontinence due to tight/tender PF (external an internal), small vaginal opening, lower abdominal pain, decreased trunk & hip mobility, and possibly poor fluid management, with longstanding hx of painful periods/PUF score 23 (symptoms of interstitial cystitis). Today, pt after much training, finally able to perform a deep breathing (supine) and felt relaxation of body with bereath. Pt forgot her bladder diary, recalled she has more leaks before the first initial medium urination with a strong urge. Physical Therapy Plan Frequency and Duration Frequency of Treatment 2x/Week Duration of treatment (weeks) 16 Plan of Care Start Date 06/23/24 Plan of Care End Date 10/14/24 Next Visit Focus/Plan Next Note Type Treatment Note Next Visit Plan Check on status of vaginal infection after recheck on . Next: Manual stretch to hip AD's. HEP: Happy Baby Pose. Check: trunk flex/ext(lwr abs). When cleared of possible infection: Manual PF stretching, progressing to deeper muscles. ? neuro re-ed with Vemg electrode. Educate/discuss stool types, foods, water intake, educate & discuss Bowel massage, sit to stand and moving in bed using breathwork. Check abdominal mobility and if needed: STM of abdomen (and urachus) & bladder mobility. POC: Pt education, Manual therapy. Biofeedback with vaginal sensor for PF >< awareness and strengthening, Therapeutic Exercises, Therapeutic Activities, Neuromuscular Reeducation.
--- NOTE | 2024-08-01 10:45 | PT-OP ANOTE ---
HYDRAULIC CHAIR ASSEMBLER called pt approx 1045 am, per request of PT. Pt needs to call PCP (PCM) to ask for updated referral for more approved visits, currently only approved out to 08/02/24. Pt stated has an appt 08/02/24 and will request for updated PT referral.
--- NOTE | 2024-08-01 17:07 | PT.OTN ---
Current Diagnoses Unspecified dyspareunia (08/01/24) Physical Therapy Treatment Note PT-OP-A Visit Information Start: 06/14/24 18:30 Freq: Status: Active Protocol: Document 08/01/24 08:56 LRN (Rec: 08/01/24 10:34 LRN [id number]) Out-Patient Physical Therapy Visit Information Visit Information Visit Type Treatment Note Visit Start Time 09:47 Visit Stop Time 10:26 Visit Number 5 Evaluation Information Evaluation Date 06/23/24 Precautions Precautions Hx of asthma (no attacks for several years). PT-OP-B Current Condition Start: 06/14/24 18:30 Freq: Status: Active Protocol: Document 06/23/24 07:34 LRN (Rec: 06/23/24 09:50 LRN [id number]) Current Condition History of Current Condition Onset Date 3 yrs ago Current Complaints Painful intercourse, urinary leakage. History of Current Condition Painful having intercourse, tried more lub and different positions and during PAP smear told MD and was told to try more lub. States pap smear was uncomfortable. Pain with initial insertion and during intercourse. Has burning sensation afterwards and if urinates, burning pain increases and has to wait a few hours to be more comfortable. States she also has trouble holding urine, that started during boot camp in 2018. She times it so that after drinking fluids she can use the toilet. Developmental History Developmental History . 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 Sometimes she is not able to use BR before having to go out on the field. Hx of premenstrual cramping, sometimes has to stop and bend over and breath to be able to continue with activities. Treatment Goals Patient/Caregiver Goals Pt goals: Alleviate some of the pain and figure out what dx is. Exercises to strengthen PF. Be able to hold bladder longer and not feel like urinating is urgent. Personal Factors Other Personal Factors That May Effect Pt is and is not Therapy/Recovery always able to use bathroom when needed. PT-OP-C Subjective Start: 06/14/24 18:30 Freq: Status: Active Protocol: Document 08/01/24 08:56 LRN (Rec: 08/01/24 10:34 LRN [id number]) OP-PT Subjective Patient Comments Patient Comments States the re-swab came back and found abnormal amt of yeast, is finished the anti- biotic but won't be able to be tested to be cleared until . A couple times during the day she leaks with a stong urge, and upon first waking trying to get to toilet . PT-OP-I Pelvic Floor Start: 06/14/24 18:30 Freq: Status: Active Protocol: Document 06/23/24 07:34 LRN (Rec: 06/23/24 09:50 LRN [id number]) Pelvic Floor Assessment Urine Pelvic Floor Surgery No Urinary Symptoms Urge Sensation,Dribbling After Urination,Incomplete Emptying Other Urinary Symptoms Leakage daily. Pushes after urinating but nothing comes out, but 20' later must urinate again. Leakage Size Medium Leakage Cause Urge Other Leakage Causes Couple times w/sneezing Leaks Per Day 3 Nocturia 1 Pads Used In 24 Hours 0 Bowel Bowel Movement Frequency every 3-4 days. [place] Stool Chart Comments Type 3 & 4 Pelvic Clock Pelvic Clock 12-3 Guarding,Tenderness,Tightness Pelvic Clock 3-6 Guarding,Tenderness,Tightness Pelvic Clock 6-9 Guarding,Tenderness Pelvic Clock 9-12 Guarding,Tenderness Prolapse Uterine Prolapse Grade 1 Cystocele Grade 1 Perineal Descent Resting Absent Bearing Absent Contraction Ability Voluntary Contraction Weak Voluntary Relaxation Weak Manual Muscle Testing Left 1 Manual Muscle Testing Right 1 Manual Muscle Testing Anterior 1 Manual Muscle Testing Posterior 1 Muscle Endurance (Seconds) 1 Number of Quick Contractions In 10 4 Seconds PT-OP-J Posture/Palpation/Skin Start: 06/14/24 18:30 Freq: Status: Active Protocol: Document 06/23/24 07:34 LRN (Rec: 06/23/24 09:50 LRN [id number]) Posture Evaluation Position Standing Head/C-Spine Posture Forward Head L-Spine Posture Increased Lordosis Shoulder Posture (R) Elevated Pelvis Posture Anteriorly Tilted Hip Posture (R) Externally Rotated Comments Posture Comments Decreased curvature of upper T /S. PT-OP-K Range of Motion Start: 06/14/24 18:30 Freq: Status: Active Protocol: Document 06/23/24 07:34 LRN (Rec: 06/23/24 09:50 LRN [id number]) Lumbar Spine Range of Motion Lumbar Spine Active Degrees Testing Position Standing Flexion 80 Extension 20 Rotation Left 30 Rotation Right 20 Lateral Flexion Left 35 Lateral Flexion Right 20 Hip Goniometric Range of Motion Hip Right Passive Testing Position Supine Abduction 30 Internal Rotation 35 External Rotation 40 Comments Pain in groin with end-range hip rotation. Left Passive Testing Position Supine Abduction 35 Internal Rotation 35 External Rotation 40 Comments Discomfort in groin with end- range hip rotation. PT-OP-M Strength Start: 06/14/24 18:30 Freq: Status: Active Protocol: Document 06/23/24 07:34 LRN (Rec: 06/23/24 09:50 LRN [id number]) Trunk Strength Trunk Manual Muscle Testing Core Stabilization Cores strength is 3/5. Hip Strength Hip Manual Muscle Testing Right Comments Strength is 3/5 in all muscle groups. Left Comments Strength is 3/5 in all muscle groups. PT-OP-Q Treatments Start: 06/14/24 18:30 Freq: Status: Active Protocol: Document 08/01/24 08:56 LRN (Rec: 08/01/24 10:34 LRN [id number]) Therapeutic Exercises Supine Exercises Deep Breathing Reps/Minutes 9' Comments Extra time needed for max inbreath training, keeping chest still Sitting Exercises Bladder retraining Sitting Exercise Name Urge deference before voiding for bladder retraining. Reps/Minutes 5' Comments Continuous v cuing for method and steps in urge deference. Trunk R rot stretch Reps/Minutes 10 SH x 6 Comments Cued to keep sit bones stable Manual Therapy Treatment Soft Tissue Mobilization Hip stretches Body Location Alvaro Hip AD's Mobilization Type Myofascial Release,Trigger Point Release Intensity/Depth Moderate Body Position Supine Comments Many Active trigger points in hip AD's. Stretch with trP release while pt assisted with active stretch. Self-Care/Home Management Treatment Education Other Education Bladder diary review based on pt's recall of her diary she kept but left at work. Discussed norms for times between voids, urination times , urination at [facility]. Activities Self-Care/Home Management Activities Issued 1 each of daily and week Bladder diary. PT-OP-T Assessment and Plan Start: 06/14/24 18:30 Freq: Status: Active Protocol: Document 08/01/24 08:56 LRN (Rec: 08/01/24 10:34 LRN [id number]) Physical Therapy Assessment Goals Three Impairment Urge urinary incontinence. Short Term Goal (STG) Pt will be educated in fluid management and urinary delay technique. 08/01/24: MET GOAL. STG Duration 08/19/24 (08/01/24: MET GOAL) Snf Goal (LTG) Pt will be able to delay urination to make it to bathroom w/o leaking while at work 3 of 7 days. LTG Duration 10/14/24 Two Impairment Pain with intercourse Short Term Goal (STG) Pt will be able to tolerate PF stretching in all areas without pain in the upper 1/2 of her PF (PF clock 9-3). STG Duration 08/19/24 Snf Goal (LTG) Pt will be able to alleviate some of the pain allowing the pt to relax during intercourse , and to have an understanding of her condition and how to alleviate pain before intercourse. LTG Duration 10/14/24 One Impairment HEP Short Term Goal (STG) Pt able to perform proper deep breathing to relax her PF. 06/23/24: Pt issued Diaphragmatic breathing. 07/25/24: Pt able to perform properly after first self phys cuing. 08/01/24: Pt able to perform deep breath properly with ms relaxation felt. STG Duration 08/19/24 (08/01/24: MET GOAL) Pile Driver Operator Helper Goal (LTG) Pt independent with HEP to relax PF/hips/core. 07/04/24: HEP: Hip ER (fig 4 stretch), Piriformis, Hip flexor (Eric Test position), Standing trunk L SB and sitting Trunk R rot stretch. 07/19/24: HEP: Hip AD stretch (SL, V-sit) Hamstring/ LE neural stretch (sup, sit). 07/25/24: Handout: General Vulvar and Hygiene Care for Women. LTG Duration 10/14/24 progressing Assessment Summary Assessment 24 yo female w/dysparenuia and urge incontinence due to tight/tender PF (external an internal), small vaginal opening, lower abdominal pain, decreased trunk & hip mobility, and possibly poor fluid management, with longstanding hx of painful periods/PUF score 23 (symptoms of interstitial cystitis). Today, pt after much training, finally able to perform a deep breathing (supine) and felt relaxation of body with bereath. Pt forgot her bladder diary, recalled she has more leaks before the first initial medium urination with a strong urge. Physical Therapy Plan Frequency and Duration Frequency of Treatment 2x/Week Duration of treatment (weeks) 16 Plan of Care Start Date 06/23/24 Plan of Care End Date 10/14/24 Next Visit Focus/Plan Next Note Type Treatment Note Next Visit Plan Check on status of vaginal infection after recheck on . Next: Manual stretch to hip AD's. HEP: Happy Baby Pose. Check: trunk flex/ext(lwr abs). When cleared of possible infection: Manual PF stretching, progressing to deeper muscles. ? neuro re-ed with Vemg electrode. Educate/discuss stool types, foods, water intake, educate & discuss Bowel massage, sit to stand and moving in bed using breathwork. Check abdominal mobility and if needed: STM of abdomen (and urachus) & bladder mobility. POC: Pt education, Manual therapy. Biofeedback with vaginal sensor for PF >< awareness and strengthening, Therapeutic Exercises, Therapeutic Activities, Neuromuscular Reeducation.
--- NOTE | 2024-09-06 08:31 | PT.OTN ---
Current Diagnoses Unspecified dyspareunia (09/06/24) Physical Therapy Treatment Note PT-OP-A Visit Information Start: 06/14/24 18:30 Freq: Status: Active Protocol: Document 09/06/24 07:31 LRN (Rec: 09/06/24 08:17 LRN [id number]) Out-Patient Physical Therapy Visit Information Visit Information Visit Type Treatment Note Visit Start Time 07:31 Visit Stop Time 08:11 Visit Number 6 Evaluation Information Evaluation Date 06/23/24 Precautions Precautions Hx of asthma (no attacks for several years). PT-OP-B Current Condition Start: 06/14/24 18:30 Freq: Status: Active Protocol: Document 06/23/24 07:34 LRN (Rec: 06/23/24 09:50 LRN [id number]) Current Condition History of Current Condition Onset Date 3 yrs ago Current Complaints Painful intercourse, urinary leakage. History of Current Condition Painful having intercourse, tried more lub and different positions and during PAP smear told MD and was told to try more lub. States pap smear was uncomfortable. Pain with initial insertion and during intercourse. Has burning sensation afterwards and if urinates, burning pain increases and has to wait a few hours to be more comfortable. States she also has trouble holding urine, that started during boot camp in 2018. She times it so that after drinking fluids she can use the toilet. Developmental History Developmental History . 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 Sometimes she is not able to use BR before having to go out on the field. Hx of premenstrual cramping, sometimes has to stop and bend over and breath to be able to continue with activities. Treatment Goals Patient/Caregiver Goals Pt goals: Alleviate some of the pain and figure out what dx is. Exercises to strengthen PF. Be able to hold bladder longer and not feel like urinating is urgent. Personal Factors Other Personal Factors That May Effect Pt is and is not Therapy/Recovery always able to use bathroom when needed. PT-OP-C Subjective Start: 06/14/24 18:30 Freq: Status: Active Protocol: Document 09/06/24 07:31 LRN (Rec: 09/06/24 08:17 LRN [id number]) OP-PT Subjective Patient Comments Patient Comments Tests results of 08/29/24 show pt has vaginal infections. PT-OP-I Pelvic Floor Start: 06/14/24 18:30 Freq: Status: Active Protocol: Document 09/06/24 07:31 LRN (Rec: 09/06/24 08:17 LRN [id number]) Pelvic Floor Assessment Contraction Ability Voluntary Contraction Weak Voluntary Relaxation Weak Manual Muscle Testing Left 1 Manual Muscle Testing Right 2 Manual Muscle Testing Anterior 0 Manual Muscle Testing Posterior 3 Comments Pelvic Floor Comments Pt anterior strength is 0 L, 3 R PT-OP-J Posture/Palpation/Skin Start: 06/14/24 18:30 Freq: Status: Active Protocol: Document 06/23/24 07:34 LRN (Rec: 06/23/24 09:50 LRN [id number]) Posture Evaluation Position Standing Head/C-Spine Posture Forward Head L-Spine Posture Increased Lordosis Shoulder Posture (R) Elevated Pelvis Posture Anteriorly Tilted Hip Posture (R) Externally Rotated Comments Posture Comments Decreased curvature of upper T /S. PT-OP-K Range of Motion Start: 06/14/24 18:30 Freq: Status: Active Protocol: Document 06/23/24 07:34 LRN (Rec: 06/23/24 09:50 LRN [id number]) Lumbar Spine Range of Motion Lumbar Spine Active Degrees Testing Position Standing Flexion 80 Extension 20 Rotation Left 30 Rotation Right 20 Lateral Flexion Left 35 Lateral Flexion Right 20 Hip Goniometric Range of Motion Hip Right Passive Testing Position Supine Abduction 30 Internal Rotation 35 External Rotation 40 Comments Pain in groin with end-range hip rotation. Left Passive Testing Position Supine Abduction 35 Internal Rotation 35 External Rotation 40 Comments Discomfort in groin with end- range hip rotation. PT-OP-M Strength Start: 06/14/24 18:30 Freq: Status: Active Protocol: Document 06/23/24 07:34 LRN (Rec: 06/23/24 09:50 LRN [id number]) Trunk Strength Trunk Manual Muscle Testing Core Stabilization Cores strength is 3/5. Hip Strength Hip Manual Muscle Testing Right Comments Strength is 3/5 in all muscle groups. Left Comments Strength is 3/5 in all muscle groups. PT-OP-Q Treatments Start: 06/14/24 18:30 Freq: Status: Active Protocol: Document 09/06/24 07:31 LRN (Rec: 09/06/24 08:17 LRN [id number]) Therapeutic Exercises Supine Exercises Kegel/BKFO Supine Exercise Name Kegel hold thru 10x knee fall out Side bilateral Reps/Minutes 10x w/Kegel, 10x w/o Kegel Happy Baby Pose Reps/Minutes 2' Deep Breathing Reps/Minutes 3 breath x 4 sets during rest phase of kegel/BKFO ex Manual Therapy Treatment Soft Tissue Mobilization Hip stretches Body Location Alvaro Hip AD's Mobilization Type Myofascial Release,Trigger Point Release Intensity/Depth Moderate Body Position Supine Comments Many Active trigger points in hip AD's. L>R tightness. Stretch with trP release while pt assisted with active stretch. PF Body Location Superficial & Deep PF Mobilization Type Sustained Pressure,Trigger Point Release Intensity/Depth Sup & deep Body Position Hooklying Comments Pt tender and tight ms on L lateral wall and at Pelvic Clock 7-8 on R lateral wall. Self-Care/Home Management Treatment Activities Self-Care/Home Management Activities Issued & reveiwed HEP: Kegels - Long hold, Quick Flicks, Aggrevators & Happy Baby Pose. PT-OP-T Assessment and Plan Start: 06/14/24 18:30 Freq: Status: Active Protocol: Document 09/06/24 07:31 LRN (Rec: 09/06/24 08:17 LRN [id number]) Physical Therapy Assessment Goals Three Impairment Urge urinary incontinence. Short Term Goal (STG) Pt will be educated in fluid management and urinary delay technique. 08/01/24: MET GOAL. STG Duration 08/19/24 (08/01/24: MET GOAL) [facility]ci Goal (LTG) Pt will be able to delay urination to make it to bathroom w/o leaking while at work 3 of 7 days. LTG Duration 10/14/24 Two Impairment Pain with intercourse Short Term Goal (STG) Pt will be able to tolerate PF stretching in all areas without pain in the upper 1/2 of her PF (PF clock 9-3). 09/06/24: Pt able to tolerate PF stretching with tenderness at Pelvic Clock 2-6 & 7-8. STG Duration 08/19/24 (09/06/24: MET GOAL) [facility]ci Goal (LTG) Pt will be able to alleviate some of the pain allowing the pt to relax during intercourse , and to have an understanding of her condition and how to alleviate pain before intercourse. LTG Duration 10/14/24 One Impairment HEP Short Term Goal (STG) Pt able to perform proper deep breathing to relax her PF. 06/23/24: Pt issued Diaphragmatic breathing. 07/25/24: Pt able to perform properly after first self phys cuing. 08/01/24: Pt able to perform deep breath properly with ms relaxation felt. STG Duration 08/19/24 (08/01/24: MET GOAL) [facility]ci Goal (LTG) Pt independent with HEP to relax PF/hips/core. 07/04/24: HEP: Hip ER (fig 4 stretch), Piriformis, Hip flexor (Eric Test position), Standing trunk L SB and sitting Trunk R rot stretch. 07/19/24: HEP: Hip AD stretch (SL, V-sit) Hamstring/ LE neural stretch (sup, sit). 07/25/24: Handout: General Vulvar and Hygiene Care for Women. 09/06/13: HEP: Kegels - Long hold, Quick Flicks, Aggrevators & Happy Baby Pose LTG Duration 10/14/24 progressing Assessment Summary Assessment 24 yo female w/dysparenuia and urge incontinence due to tight/tender PF (external an internal) and slow relaxation response, small vaginal opening, lower abdominal pain, decreased trunk & hip mobility, longstanding hx of painful periods. Today, pt returns after 30+ days (due to scheduling difficulties) with labs indicating no vaginal infection; therefore PF stretching started. + response to manual stretching of PF with what appears to be resolution of pain with mild pressure and internally with moderate pressure. Pt has a L lateral wall weakness > R side of PF. R anterior PF is strong at 3/5. She has a weak PF contraction and weak ability to relax. Pt moves slowly through Kegel/BKFO ex. Good ability to deep breath. Physical Therapy Plan Frequency and Duration Frequency of Treatment 2x/Week Duration of treatment (weeks) 16 Plan of Care Start Date 06/23/24 Plan of Care End Date 10/14/24 Next Visit Focus/Plan Next Note Type Treatment Note Next Visit Plan New POC may be needed. Next: PF strengthen/relaxation rehab . Review HEP: Happy Baby Pose. Check: trunk flex/ext( lwr abs). Manual stretch to hip AD's. Cont Manual PF stretching, progress to deeper muscles. Neuro re-ed with Vemg electrode. Educate/discuss stool types, foods, water intake, educate & discuss Bowel massage, sit to stand and moving in bed using breathwork. Check abdominal mobility and if needed: STM of abdomen (and urachus) & bladder mobility. POC: Pt education, Manual therapy. Biofeedback with vaginal sensor for PF >< awareness and strengthening, Therapeutic Exercises, Therapeutic Activities, Neuromuscular Reeducation.
--- NOTE | 2024-09-08 14:46 | PT-OP ANOTE ---
Per phone conversation pt states she was not aware she had an appt. After last session she states she was told her appt were canceled and she has only one more appt scheduled in Sep. Recommended pt call in on her days off to see if she can get into therapy sooner than Sep., pt agreeable and plans to call in to discuss she dd not know she had an appt today.
--- NOTE | 2024-09-12 19:09 | PT.OTN ---
Current Diagnoses Unspecified dyspareunia (09/12/24) Physical Therapy Treatment Note PT-OP-A Visit Information Start: 06/14/24 18:30 Freq: Status: Active Protocol: Document 09/12/24 08:16 LRN (Rec: 09/12/24 09:03 LRN [id number]) Out-Patient Physical Therapy Visit Information Visit Information Visit Type Treatment Note Visit Start Time 08:16 Visit Stop Time 08:56 Visit Number 7 Evaluation Information Evaluation Date 06/23/24 Precautions Precautions Hx of asthma (no attacks for several years). PT-OP-B Current Condition Start: 06/14/24 18:30 Freq: Status: Active Protocol: Document 06/23/24 07:34 LRN (Rec: 06/23/24 09:50 LRN [id number]) Current Condition History of Current Condition Onset Date 3 yrs ago Current Complaints Painful intercourse, urinary leakage. History of Current Condition Painful having intercourse, tried more lub and different positions and during PAP smear told MD and was told to try more lub. States pap smear was uncomfortable. Pain with initial insertion and during intercourse. Has burning sensation afterwards and if urinates, burning pain increases and has to wait a few hours to be more comfortable. States she also has trouble holding urine, that started during boot camp in 2018. She times it so that after drinking fluids she can use the toilet. Developmental History Developmental History . 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 Sometimes she is not able to use BR before having to go out on the field. Hx of premenstrual cramping, sometimes has to stop and bend over and breath to be able to continue with activities. Treatment Goals Patient/Caregiver Goals Pt goals: Alleviate some of the pain and figure out what dx is. Exercises to strengthen PF. Be able to hold bladder longer and not feel like urinating is urgent. Personal Factors Other Personal Factors That May Effect Pt is and is not Therapy/Recovery always able to use bathroom when needed. PT-OP-C Subjective Start: 06/14/24 18:30 Freq: Status: Active Protocol: Document 09/12/24 08:16 LRN (Rec: 09/12/24 09:03 LRN [id number]) OP-PT Subjective Patient Comments Patient Comments Same urgency and leakage in the morning. Not able to control leakage with Urge deference technique. BM every 2-3 days, 4 at max. Not drinking, possibly due to fear of leakage, but normally not an every day pooper. PT-OP-I Pelvic Floor Start: 06/14/24 18:30 Freq: Status: Active Protocol: Document 09/06/24 07:31 LRN (Rec: 09/06/24 08:17 LRN [id number]) Pelvic Floor Assessment Contraction Ability Voluntary Contraction Weak Voluntary Relaxation Weak Manual Muscle Testing Left 1 Manual Muscle Testing Right 2 Manual Muscle Testing Anterior 0 Manual Muscle Testing Posterior 3 Comments Pelvic Floor Comments Pt anterior strength is 0 L, 3 R PT-OP-J Posture/Palpation/Skin Start: 06/14/24 18:30 Freq: Status: Active Protocol: Document 06/23/24 07:34 LRN (Rec: 06/23/24 09:50 LRN [id number]) Posture Evaluation Position Standing Head/C-Spine Posture Forward Head L-Spine Posture Increased Lordosis Shoulder Posture (R) Elevated Pelvis Posture Anteriorly Tilted Hip Posture (R) Externally Rotated Comments Posture Comments Decreased curvature of upper T /S. PT-OP-K Range of Motion Start: 06/14/24 18:30 Freq: Status: Active Protocol: Document 06/23/24 07:34 LRN (Rec: 06/23/24 09:50 LRN [id number]) Lumbar Spine Range of Motion Lumbar Spine Active Degrees Testing Position Standing Flexion 80 Extension 20 Rotation Left 30 Rotation Right 20 Lateral Flexion Left 35 Lateral Flexion Right 20 Hip Goniometric Range of Motion Hip Right Passive Testing Position Supine Abduction 30 Internal Rotation 35 External Rotation 40 Comments Pain in groin with end-range hip rotation. Left Passive Testing Position Supine Abduction 35 Internal Rotation 35 External Rotation 40 Comments Discomfort in groin with end- range hip rotation. PT-OP-M Strength Start: 06/14/24 18:30 Freq: Status: Active Protocol: Document 06/23/24 07:34 LRN (Rec: 06/23/24 09:50 LRN [id number]) Trunk Strength Trunk Manual Muscle Testing Core Stabilization Cores strength is 3/5. Hip Strength Hip Manual Muscle Testing Right Comments Strength is 3/5 in all muscle groups. Left Comments Strength is 3/5 in all muscle groups. PT-OP-Q Treatments Start: 06/14/24 18:30 Freq: Status: Active Protocol: Document 09/12/24 08:16 LRN (Rec: 09/12/24 09:03 LRN [id number]) Therapeutic Exercises Supine Exercises Child's Pose Supine Exercise Name Legs together and legs apart Reps/Minutes 4' Happy Baby Pose Reps/Minutes 2' Manual Therapy Treatment Consent Patient gave verbal consent for manual Yes treatment Soft Tissue Mobilization Hip stretches Body Location Alvaro Hip AD's Mobilization Type Myofascial Release,Trigger Point Release Intensity/Depth Moderate Body Position Supine Comments Many Active trigger points in hip AD's. L>R tightness. Stretch with trP release while pt assisted with active stretch. PF Body Location Superficial & Deep PF Mobilization Type Myofascial Release,Sustained Pressure,Trigger Point Release Intensity/Depth Sup & deep Body Position Hooklying Comments Pt tighter on R lateral wall after stretching, and immediately after stretching there was a stronger contraction from the L side ( initial 2-3 contractions) Self-Care/Home Management Treatment Activities Self-Care/Home Management Activities Issued & reviewed HEP: Child' s Pose PT-OP-T Assessment and Plan Start: 06/14/24 18:30 Freq: Status: Active Protocol: Document 09/12/24 08:16 LRN (Rec: 09/12/24 09:03 LRN [id number]) Physical Therapy Assessment Goals Three Impairment Urge urinary incontinence. Short Term Goal (STG) Pt will be educated in fluid management and urinary delay technique. 08/01/24: MET GOAL. STG Duration 08/19/24 (08/01/24: MET GOAL) Assisted Goal (LTG) Pt will be able to delay urination to make it to bathroom w/o leaking while at work 3 of 7 days. LTG Duration 10/14/24 Two Impairment Pain with intercourse Short Term Goal (STG) Pt will be able to tolerate PF stretching in all areas without pain in the upper 1/2 of her PF (PF clock 9-3). 09/06/24: Pt able to tolerate PF stretching with tenderness at Pelvic Clock 2-6 & 7-8. STG Duration 08/19/24 (09/06/24: MET GOAL) Assisted Goal (LTG) Pt will be able to alleviate some of the pain allowing the pt to relax during intercourse , and to have an understanding of her condition and how to alleviate pain before intercourse. LTG Duration 10/14/24 One Impairment HEP Short Term Goal (STG) Pt able to perform proper deep breathing to relax her PF. 06/23/24: Pt issued Diaphragmatic breathing. 07/25/24: Pt able to perform properly after first self phys cuing. 08/01/24: Pt able to perform deep breath properly with ms relaxation felt. STG Duration 08/19/24 (08/01/24: MET GOAL) Assisted Goal (LTG) Pt independent with HEP to relax PF/hips/core. 07/04/24: HEP: Hip ER (fig 4 stretch), Piriformis, Hip flexor (Eric Test position), Standing trunk L SB and sitting Trunk R rot stretch. 07/19/24: HEP: Hip AD stretch (SL, V-sit) Hamstring/ LE neural stretch (sup, sit). 07/25/24: Handout: General Vulvar and Hygiene Care for Women. 09/06/13: HEP: Kegels - Long hold, Quick Flicks, Aggrevators & Happy Baby Pose. 09/12/24: HEP: Child's Pose LTG Duration 10/14/24 progressing Assessment Summary Assessment 24 yo female w/dysparenuia and urge incontinence due to tight/tender PF (external an internal), lat wall weakness ( L>R) and PF slow to relax; small vaginal opening, lower abdominal pain, decreased trunk & hip mobility, longstanding hx of painful periods. Today, pt able to get a good back stretch with CHild's Pose and an inner thigh stretch when knees moved out. Fair recall of Happy Baby Pose. Good tolerance to PF stretching of deep and superficial ms. PF L lateral responded well to stretching with an improved PF contraction for the first 2-3x , but it appears the pt was not able to relax PF encough to get a good contraction after the first 2-3x. Further work on PF relaxation after contraction is needed. Physical Therapy Plan Frequency and Duration Frequency of Treatment 2x/Week Duration of treatment (weeks) 16 Plan of Care Start Date 06/23/24 Plan of Care End Date 10/14/24 Next Visit Focus/Plan Next Note Type Treatment Note Next Visit Plan New POC may be needed. Next: Review HEP: Happy Baby & Child's (2 positions) Pose. Check: trunk flex/ext(lwr abs) . Cont manual stretch to hip AD's, PF superficial and deep ms. PF strengthen/relaxation rehab. Neuro re-ed with Vemg electrode. Educate/discuss stool types, foods, educate & discuss Bowel massage, sit to stand and moving in bed using breathwork . Check abdominal mobility and if needed: STM of abdomen (and urachus) & bladder mobility. POC: Pt education, Manual therapy. Biofeedback with vaginal sensor for PF >< awareness and strengthening, Therapeutic Exercises, Therapeutic Activities, Neuromuscular Reeducation.
--- NOTE | 2024-09-30 09:15 | PT-OP ANOTE ---
Not able to reach pt by phone due to full mailbox. Pt has not shown for appt at this time.
--- NOTE | 2025-02-28 19:22 | PT.OPDS ---
Current Diagnoses Unspecified dyspareunia (09/12/24) Visit Care Team Role Provider Type LISA Torres-Kiara Family Provider Non-Staff Primary Care Provider Specialty: Nursing Address: [facility], [address] [place] [address], [id number] Email: Joanne Richard MD Attending Provider Non-Staff Referring Provider Specialty: Medical Address: [address] [place] [address], [id number] Email: Visit Number Visit Number 7 Discharge Summary PT-OP-B Current Condition Start: 06/14/24 18:30 Freq: Status: Active Protocol: Document 06/23/24 07:34 LRN (Rec: 06/23/24 09:50 LRN [id number]) Current Condition History of Current Condition Onset Date 3 yrs ago Current Complaints Painful intercourse, urinary leakage. History of Current Condition Painful having intercourse, tried more lub and different positions and during PAP smear told MD and was told to try more lub. States pap smear was uncomfortable. Pain with initial insertion and during intercourse. Has burning sensation afterwards and if urinates, burning pain increases and has to wait a few hours to be more comfortable. States she also has trouble holding urine, that started during boot camp in 2018. She times it so that after drinking fluids she can use the toilet. Developmental History Developmental History . 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 Sometimes she is not able to use BR before having to go out on the field. Hx of premenstrual cramping, sometimes has to stop and bend over and breath to be able to continue with activities. Treatment Goals Patient/Caregiver Goals Pt goals: Alleviate some of the pain and figure out what dx is. Exercises to strengthen PF. Be able to hold bladder longer and not feel like urinating is urgent. Personal Factors Other Personal Factors That May Effect Pt is and is not Therapy/Recovery always able to use bathroom when needed. PT-OP-C Subjective Start: 06/14/24 18:30 Freq: Status: Active Protocol: Document 09/12/24 08:16 LRN (Rec: 09/12/24 09:03 LRN [id number]) OP-PT Subjective Patient Comments Patient Comments Same urgency and leakage in the morning. Not able to control leakage with Urge deference technique. BM every 2-3 days, 4 at max. Not drinking, possibly due to fear of leakage, but normally not an every day pooper. PT-OP-I Pelvic Floor Start: 06/14/24 18:30 Freq: Status: Active Protocol: Document 09/06/24 07:31 LRN (Rec: 09/06/24 08:17 LRN [id number]) Pelvic Floor Assessment Contraction Ability Voluntary Contraction Weak Voluntary Relaxation Weak Manual Muscle Testing Left 1 Manual Muscle Testing Right 2 Manual Muscle Testing Anterior 0 Manual Muscle Testing Posterior 3 Comments Pelvic Floor Comments Pt anterior strength is 0 L, 3 R PT-OP-J Posture/Palpation/Skin Start: 06/14/24 18:30 Freq: Status: Active Protocol: Document 06/23/24 07:34 LRN (Rec: 06/23/24 09:50 LRN [id number]) Posture Evaluation Position Standing Head/C-Spine Posture Forward Head L-Spine Posture Increased Lordosis Shoulder Posture (R) Elevated Pelvis Posture Anteriorly Tilted Hip Posture (R) Externally Rotated Comments Posture Comments Decreased curvature of upper T /S. PT-OP-K Range of Motion Start: 06/14/24 18:30 Freq: Status: Active Protocol: Document 06/23/24 07:34 LRN (Rec: 06/23/24 09:50 LRN [id number]) Lumbar Spine Range of Motion Lumbar Spine Active Degrees Testing Position Standing Flexion 80 Extension 20 Rotation Left 30 Rotation Right 20 Lateral Flexion Left 35 Lateral Flexion Right 20 Hip Goniometric Range of Motion Hip Right Passive Testing Position Supine Abduction 30 Internal Rotation 35 External Rotation 40 Comments Pain in groin with end-range hip rotation. Left Passive Testing Position Supine Abduction 35 Internal Rotation 35 External Rotation 40 Comments Discomfort in groin with end- range hip rotation. PT-OP-M Strength Start: 06/14/24 18:30 Freq: Status: Active Protocol: Document 06/23/24 07:34 LRN (Rec: 06/23/24 09:50 LRN [id number]) Trunk Strength Trunk Manual Muscle Testing Core Stabilization Cores strength is 3/5. Hip Strength Hip Manual Muscle Testing Right Comments Strength is 3/5 in all muscle groups. Left Comments Strength is 3/5 in all muscle groups. PT-OP-T Assessment and Plan Start: 06/14/24 18:30 Freq: Status: Active Protocol: Document 02/28/25 19:12 LRN (Rec: 02/28/25 19:22 LRN [email or web address]) Physical Therapy Assessment Goals Three Impairment Urge urinary incontinence. Short Term Goal (STG) Pt will be educated in fluid management and urinary delay technique. 08/01/24: MET GOAL. STG Duration 08/19/24 (08/01/24: MET GOAL) Group Home Goal (LTG) Pt will be able to delay urination to make it to bathroom w/o leaking while at work 3 of 7 days. LTG Duration 10/14/24 Two Impairment Pain with intercourse Short Term Goal (STG) Pt will be able to tolerate PF stretching in all areas without pain in the upper 1/2 of her PF (PF clock 9-3). 09/06/24: Pt able to tolerate PF stretching with tenderness at Pelvic Clock 2-6 & 7-8. STG Duration 08/19/24 (09/06/24: MET GOAL) Group Home Goal (LTG) Pt will be able to alleviate some of the pain allowing the pt to relax during intercourse , and to have an understanding of her condition and how to alleviate pain before intercourse. LTG Duration 10/14/24 One Impairment HEP Short Term Goal (STG) Pt able to perform proper deep breathing to relax her PF. 06/23/24: Pt issued Diaphragmatic breathing. 07/25/24: Pt able to perform properly after first self phys cuing. 08/01/24: Pt able to perform deep breath properly with ms relaxation felt. STG Duration 08/19/24 (08/01/24: MET GOAL) Group Home Goal (LTG) Pt independent with HEP to relax PF/hips/core. 07/04/24: HEP: Hip ER (fig 4 stretch), Piriformis, Hip flexor (Eric Test position), Standing trunk L SB and sitting Trunk R rot stretch. 07/19/24: HEP: Hip AD stretch (SL, V-sit) Hamstring/ LE neural stretch (sup, sit). 07/25/24: Handout: General Vulvar and Hygiene Care for Women. 09/06/13: HEP: Kegels - Long hold, Quick Flicks, Aggrevators & Happy Baby Pose. 09/12/24: HEP: Child's Pose LTG Duration 10/14/24 progressing Assessment Summary Assessment Pt is a 24 yo female w/ dysparenuia and urge incontinence due to tight/ tender PF (external an internal), lat wall weakness ( L>R) and PF slow to relax; small vaginal opening, lower abdominal pain, decreased trunk & hip mobility, longstanding hx of painful periods. Her initial eval was on 06/23/24 and last seen on 09/12/24. She was seen for 7 visits and due to scheduling difficulties and not attending her last scheduled visit, she was not able to be seen before her plan of care . Attempt to reach the pt was unsuccessful due to full mailbox. The pt is being discharged from physical therapy due to lack of attendance and pt being beyond her plan of care. Physical Therapy Plan Discharge Physical Therapy Discharge Reasons No Longer Attending PT Discharge Comments The pt would benefit from further physical therapy, but a new referral would be needed . Thank you for your referral .
== END 2025-03-02 09:57 | disposition home or self-care (01) ==
LOC: PHYS 08:15
PROVIDERS: Family Provider Nurse Practitioner Family; PCP Nurse Practitioner Family; Referring Provider Student in an Organized Health Care Education/Training Program; Visit Provider Student in an Organized Health Care Education/Training Program
DX: N94.10 Unspecified dyspareunia (principal)
CPT/HCPCS: 97110; 97140; 97162; 97535